=== PATIENT | male | born 1955 | race Caucasian/White ===

== ENCOUNTER 2018-02-15 09:09 | Emergency (ER) | payer OTHER ==
--- NOTE | 2018-02-15 09:25 | EDPHY ---
H & P Stated Complaint: left leg pain started on thursday, unknown injury or trauma Time Seen by Provider: 02/15/18 09:19 HPI/ROS: CHIEF COMPLAINT: Left leg pain HISTORY OF PRESENT ILLNESS: The patient is a 62-year-old man with a history of varicose veins. He has had vein stripping on his right leg. He has noticed some increased pain and tenderness to the left leg at the site of a varicosity and his medial calf. States that it feels superficial. No erythema. No recent travel but he has been sitting a lot at work. Nonsmoker. Not diabetic. No pain with movement or walking. No chest pain or shortness of breath. He is concerned about DVT. REVIEW OF SYSTEMS: Constitutional: denies: chills, fever, recent illness, recent injury EENTM: denies: blurred vision, double vision, nose congestion Respiratory: denies: cough, shortness of breath Cardiac: denies: chest pain, irregular heart rate, lightheadedness, palpitations Gastrointestinal/Abdominal: denies: abdominal pain, diarrhea, nausea, vomiting, blood streaked stools Genitourinary: denies: dysuria, frequency, hematuria, pain Musculoskeletal: See HPI denies: joint pain, muscle pain Skin: denies: lesions, rash, jaundice, bruising Neurological: denies: headache, numbness, paresthesia, tingling, dizziness, weakness Hematologic/Lymphatic: denies: blood clots, easy bleeding, easy bruising Immunologic/allergic: denies: HIV/AIDS, transplant EXAM: GENERAL: Well-appearing, well-nourished and in no acute distress. HEAD: Atraumatic, normocephalic. EYES: Pupils equal round and reactive to light, extraocular movements intact, sclera anicteric, conjunctiva are normal. ENT: TMs normal, nares patent, oropharynx clear without exudates. Moist mucous membranes. NECK: Normal range of motion, supple without lymphadenopathy or JVD. LUNGS: Breath sounds clear to auscultation bilaterally and equal. No wheezes rales or rhonchi. HEART: Regular rate and rhythm without murmurs, rubs or gallops. ABDOMEN: Soft, nontender, normoactive bowel sounds. No guarding, no rebound. No masses appreciated. BACK: No CVA tenderness, no spinal tenderness, step-offs or deformities EXTREMITIES: Small varicosity to left medial calf that is site of patient's pain and discomfort. He states that it feels superficial. Negative Augustin. No swelling or edema. Normal range of motion, no pitting or edema. No clubbing or cyanosis. NEUROLOGICAL: Cranial nerves II through XII grossly intact. Normal speech, normal gait. 5/5 strength, normal movement in all extremities, normal sensation PSYCH: Normal mood, normal affect. SKIN: Warm, dry, normal turgor, no visible rashes or lesions. Source: Patient Exam Limitations: No limitations - Medical/Surgical History Hx Asthma: No Hx Chronic Respiratory Disease: No Hx Diabetes: No Hx Cardiac Disease: No Hx Renal Disease: No Hx Cirrhosis: No Hx Alcoholism: No Hx HIV/AIDS: No Hx Splenectomy or Spleen Trauma: No Other PMH: TONSILS, APPY, cardiac cath 2002, right calf vein ablation - Family History Significant Family History: No pertinent family hx - Social History Smoking Status: Never smoked Alcohol Use: Sober Drug Use: None Constitutional: Initial Vital Signs Temperature (C) 36.7 C 02/15/18 09:17 Heart Rate 58 L 02/15/18 09:17 Respiratory Rate 18 02/15/18 09:17 Blood Pressure 129/69 H 02/15/18 09:17 O2 Sat (%) 96 02/15/18 09:17 O2 Delivery Mode Room Air Allergies/Adverse Reactions: lactose Allergy (Verified 02/15/18 09:16) Home Medications: Medication Instructions Recorded Ambien 5MG (RX) 01/01/15 Propranolol HCl 01/01/15 Apixaban [Eliquis 30-day Starter 1 kit PO AD #1 kit 02/15/18 Pack] Medical Decision Making - Diagnostics Imaging Results: Imaging Impressions Extremity Venous Study 02/15/18 09:23 Impression: Short segment of deep vein thrombosis and adjacent superficial vein thrombosis in the mid-lower calf. No higher thrombus identified. Results discussed with Dr. Quan. Imaging: Discussed imaging studies w/ call center support representative Radiologist ED Course/Re-evaluation: We discussed the ultrasound results. I will start the patient on Eliquis because we have a free 30 day coupon. He will likely need to be on it for 3 months. He will follow up with his primary for re-evaluation. He is happy with this plan and declines further workup or testing. Differential Diagnosis: Partial list of the Differential diagnosis considered include but were not limited to; superficial thrombophlebitis, DVT and although unlikely based on the history and physical exam, I also considered hematoma, fracture, infection. I discussed these differential diagnoses and the plan with the patient as well as the usual and expected course. The patient understands that the diagnosis is provisional and that in medicine we are not always correct and that further workup is often warranted. Usual and customary warnings were given. All of the patient's questions were answered. The patient was instructed to return to the emergency department should the symptoms at all worsen or return, otherwise to followup with the physician as we discussed. - Data Points Medications Given: Discontinued Medications Apixaban (Eliquis) 10 mg PO EDNOW ONE Stop: 02/15/18 10:27 Last Admin: 02/15/18 10:38 Dose: 10 mg Departure - Departure Disposition: Home, Routine, Self-Care Clinical Impression: Superficial thrombophlebitis of left leg DVT (deep venous thrombosis) Qualifiers: DVT location: lower extremity Affected thrombotic vein of extremity: unspecified vein of extremity Chronicity: acute Laterality: right Qualified Code (s): I82.401 - Acute embolism and thrombosis of unspecified deep veins of right lower extremity Condition: Fair Instructions: Apixaban (By mouth), Deep Vein Thrombosis (ED) Referrals: Sanjay Saenz MD [Primary Care Provider] - 5-7 days, call for appt. Prescriptions: Apixaban [Eliquis 30-day Starter Pack] 1 kit PO AD #1 kit
[2018-02-15] MEDS ORDERED: APIXABAN 5 MG TAB PO ONE (10:26)
[2018-02-15 11:32] VITALS: BP 105/72
== END 2018-02-15 10:41 | disposition home or self-care (01) ==
LOC: CED 09:09
DX: I82.401 Acute embolism and thrombosis of unspecified deep veins of right lower extremity (principal); Z79.01 Long term (current) use of anticoagulants
CPT/HCPCS: 93971-PO